=== PATIENT | female | born 1965 | race Caucasian/White ===

== ENCOUNTER 2017-04-12 18:21 | Emergency (ER) | payer OTHER ==
[2017-04-12 18:34] VITALS: BP 138/86
[2017-04-12] MEDS ORDERED: KETOROLAC TROMETHAMINE 60 MG/2 ML VIAL IM ONE ×2 (18:51→18:59)
--- NOTE | 2017-04-12 19:03 | ERNOTE ---
Upper Extremity HPI - Narrative Date of Service: 04/12/17 - General Extremities Pain Location: shoulder: left Time Seen by Provider: 04/12/17 18:41 Source: patient Exam Limitations: no limitations - Immun/Allergies/Home Medications Immunizations: IMMUNIZATION HX Immunizations Up to Date Yes History of Influenza Vaccine Yes Allergies/Adverse Reactions: Allergies Allergy/AdvReac Type Severity Reaction Status Date / Time No Known Allergies Allergy Verified 06/13/13 09:54 Home Medications: HOME MEDICATIONS Naproxen Sodium [Aleve] 220 mg PO BID PRN 06/13/13 [Last Taken Unknown] HYDROcodone/ACETAMINOPHEN [Hydrocodon-Acetaminophen 5-325] 1 each PO TID PRN # 20 tablet 04/12/17 [Last Taken Unknown] - History of Present Illness Narrative: 51-year-old female presents to the emergency room after she was walking and carrying something and tripped and fell landing on her left shoulder and also bruising her right wrist. Date (Duration): 04/12/17 Occurred: just prior to arrival Location of Incident: home Severity: mild Method of Injury: Reports: fell Reason for Fall: Reports: lost balance Loss of Consciousness: Reports: no loss of consciousness Modifying Factors - (Worsens): Reports: movement Associated Symptoms: Reports: tingling - right wrist Review of Systems - Review of Systems Constitutional: Present: no symptoms reported EYE: Present: no symptoms reported ENT: Present: no symptoms reported Respiratory: Present: no symptoms reported Cardiology: Present: no symptoms reported Gastrointestinal/Abdominal: Present: no symptoms reported Genitourinary: Present: no symptoms reported Musculoskeletal: Present: See HPI Skin: Present: other - bruising to right wrist and right thumb Neurological: Present: tingling - r wrist Endocrine: Present: no symptoms reported Hematologic/Lymphatic: Present: no symptoms reported Psych: Present: no symptoms reported - Patient's Past Medical History Patient History - Medical: Arthritis Patient History - Cardiac/Respiratory: No pertinent hx Patient History - Cancer: No Hx of Cancer Patient History - Surgical Procedures: Orthopedic Patient History - Other: None - Social History Living Situations: spouse Abuse History: No History of abuse Psych History: No pertinent hx Smoking Status: Never smoker Do you dip or chew tobacco: No Alcohol Use: none Drug Use: none - Immunizations Immunizations Up to Date: Yes History of Influenza Vaccine: Yes Physical Exam - Physical Exam General Appearance: Present: wd/wn, alert, no apparent distress Eye Exam: Normal inspection: bilateral Ears, Nose, Throat: Present: normal ENT inspection Neck: Present: normal inspection Respiratory: Present: no respiratory distress, normal breath sounds, no accessory muscle use, lungs clear Cardiovascular/Chest: Present: regular rate, rhythm, no murmur, normal peripheral pulses Peripheral Pulses: N=norm/S=strong/W=weak/B=bound/A=absent: Radial (R): Normal, Radial (L): Normal Gastrointestinal/Abdominal: Present: soft Back Exam: Present: normal inspection, normal range of motion, no vertebral tenderness Extremity Exam: Present: normal except - - pain with ROm to laft shoulder. unable to abduct left arm, decreased range of motion Neurological Exam: Present: alert, oriented, normal mood/affect, no motor/ sensory deficits Skin Exam: Present: normal color, warm/dry Lymphatic Exam: Present: no adenopathy ED Progress - Vital Signs Vital Signs: Vital Signs 04/12/17 18:29 Temperature 37.1 C Pulse Rate 83 Respiratory 14 Rate Blood Pressure 138/86 O2 Sat by Pulse 99 Oximetry - X-Ray X-Ray #1 X-Ray: shoulder Interpretation: Reviewed by me X-ray Comments: no acute injury observed X-Ray #2 X-Ray: wrist Interpretation: Reviewed by me X-ray Comments: no acute fracture observed - Progress/Reassessment Chief Complaint: Shoulder Injury/Pain Progress:: Improved Departure Clinical Impression: Injury, shoulder and upper arm Qualifiers: Encounter type: initial encounter Laterality: left Qualified Code(s): S49.92XA - Unspecified injury of left shoulder and upper arm, initial encounter - Departure Disposition: Home Follow Up Needed Condition: Stable Instructions: Shoulder Sprain, Shoulder Pain, [id number] Additional Instructions: Continue previous home medications directed. He may take [id number] pain medications as needed. Follow up with her primary care provider in the next 2- 3 days if needed. Referrals: Master Jack DO [Primary Care Provider] - Prescriptions: HYDROcodone/ACETAMINOPHEN [Hydrocodon-Acetaminophen 5-325] 1 each PO TID PRN # 20 tablet PRN Reason: Pain
== END 2017-04-12 20:14 | disposition home or self-care (01) ==
LOC: ER 18:21
DX: S49.92XA Unspecified injury of left shoulder and upper arm, initial encounter (principal); M19.90 Unspecified osteoarthritis, unspecified site; W01.0XXA Fall on same level from slipping, tripping and stumbling without subsequent striking against object, initial encounter; Y93.89 Activity, other specified; Y92.009 Unspecified place in unspecified non-institutional (private) residence as the place of occurrence of the external cause

== ENCOUNTER 2017-10-13 06:44 | Day surgery (SDC) | payer OTHER ==
[~2017-10-13 06:44] MED LIST: ceFAZolin SODIUM 1 GM VIAL IV PRN
[2017-10-13] MEDS: RINGER'S SOLUTION,LACTATED 1,000 ML IV PRN ×2 (07:05→07:35)
--- NOTE | 2017-10-13 10:13 | POSTOP NO ---
Date of Surgery: 10/13/17 Patient Tolerated the Procedure: Well Post Operative Diagnosis/Procedures: Dark Room Attendant: Anton Boone PA-C Post-operative Diagnosis: Massive rotator cuff tear left shoulder, biceps tear Finding: Above Procedure: Mini open rotator cuff repair massive rotator cuff tear left shoulder , biceps tenotomy Estimated Blood Loss: Minimal Specimens: None
--- NOTE | 2017-10-13 10:18 | OR ---
Operative Report - Dictated Report Narrative: Date: 10/13/2017 Physician: Kurt Azevedo M.D. Book Jacket Cover Machine Operator: Anton Boone PA-C Preoperative diagnosis: Left Shoulder massive full-thickness rotator cuff tear, biceps tendon tear Postoperative diagnosis: Left Shoulder massive full-thickness rotator cuff tear of the supra and infraspinatus tear, biceps tendon tear Procedure: Left shoulder arthroscopy with mini open massive rotator cuff repair , biceps tenotomy Anesthesia: General plus regional Complications: None Estimated blood loss: Minimal Specimens: None Retained implants: [employer] 4.5 mm peek helicoil anchor 3, footprint anchor 2 Drains: None Indications: Mrs. Hahn Is a 51 year-old female who has been followed in my clinic with complaints of shoulder pain consistent full-thickness rotator cuff tear. Physical exam and diagnostic imaging were consistent with his complaints and concern for massive retracted full thickness rotator cuff tear. Conservative measures have failed including, but not limited to, passage of time, activity modification, medications, physical therapy/home exercise program, or injections. The risks, benefits, and alternatives were discussed in clinic. The risks being , bleeding, infection, blood clots, nerve, tendon, ligament , blood vessel injury, persistent pain, arthrosis, stiffness, need for prolonged therapy, need for additional procedures, and persistent symptoms. Consent was obtained in the clinic. Procedure: After marking the correct extremity in the preoperative holding area, a timeout was performed in the operating room. IV antibiotics consisting of Ancef were administered prior to the procedure. A general followed by regional anesthetic was induced by the nurse creative engagement director per my request. This was in the supine position, then the patient was transitioned to a beachchair position with all bony prominences well-padded, head in neutral, the nonoperative arm well supported, and the legs padded with SCDs in place. The operative shoulder was then prepped and draped in a standard sterile fashion. Preoperatively the shoulder had full passive range of motion, and no gross instability. After marking out the bony landmarks, saline was infused into the joint through a posterior lateral portal site. A bayron incision was made, and the blunt trocar and cannula was introduced into the shoulder joint. An accessory portal was placed in the rotator cuff interval using a spinal needle for guidance. Upon initial evaluation, the biceps tendon showed approximately 50% thickness tear at the edge of the articular cartilage. The middle glenohumeral ligament was intact. Subscapularis tendon was unremarkable. The glenoid showed mild degenerative change. The humeral head articular surface showed minimal degenerative change. The anterior labrum was frayed but intact. The superior labrum was intact. The pouch was unremarkable. The posterior labrum was intact. The supraspinatus tendon was torn and retracted to the level of the glenoid. The infraspinatus tendon was torn and retracted to the level of glenoid. Utilizing arthroscopic scissors, the biceps was tenotomized as it inserted on the labrum. The remaining stump and distal fibers were debrided using a shaver. Attention was then turned to the subacromial space. Subacromial bursectomy was performed utilizing the prior portals. The coracoacromial ligament frayed but intact. The bursal side of the rotator cuff demonstrated full-thickness tear with retraction is identified intra-articularly. The acromial arch fairly unremarkable. Based on the arthroscopic findings, as well as exam and radiographic findings, it was elected to proceed with a mini open rotator cuff repair. A longitudinal incision centered over the previously identified rotator cuff tear was made just off the edge of the acromion. This was approximately 6 centimeters in length. The deltoid fascia was split sharply in line with its fibers, and blunt dissection was carried through the deltoid muscle. Any remaining subacromial bursal tissue was debrided in order to expose the underlying rotator cuff tear. The rotator cuff tear appeared to be L-shaped orientation. It was retracted posteriorly and medially with minimal remaining fibers at the most posterior aspect of the infraspinatus. The tuberosity was debrided of its soft tissues producing a bleeding bed for the tendon to be secured to. 3 4.5 mm PEEK helicoil anchor was placed just off the articular surface of the humeral head. A series of horizontal mattress sutures were placed at the prepared edge of the rotator cuff. This allowed for a tension-free return of the tendon to the greater tuberosity. The sutures were then passed longitudinally into 2 4.5 mm PEEK footprint anchor. This was performed and a suture bridge technique. This gave good overall compression to the rotator cuff at the insertion site. The shoulders place a range of motion and had no lift off of the repair site as well as no crepitance or signs of impingement. Full passive range of motion was able to be obtained. Once it was felt that the rotator cuff was adequately repaired, the wounds were thoroughly irrigated. 0 Vicryl was utilized in order to repair the deltoid fascia. 3-0 Monocryl was placed in the subcutaneous tissue. The rotator cuff incision as well as the portal sites were closed with interrupted nylon. Dressings consisting of Xeroform, 4 x 4, ABD, soft roll, and tape were applied. All sponge, needle, blade, and instrument counts were correct prior to closing the wounds. The patient was awoken and transferred to the postanesthesia care unit in stable condition.
[2017-10-13 11:53] VITALS: BP 127/82
--- NOTE | 2017-10-13 17:29 | OR ---
Anesthesia Procedure Note - Anesthesia Procedure Note Narrative: Vital Signs - Last Taken Temp 35.9 C L 10/13/17 13:30 Pulse 76 10/13/17 13:30 Resp 18 10/13/17 13:30 BP 127/82 10/13/17 13:30 Pulse Ox 100 10/13/17 13:30 O2 Oxygen Delivery Method Room Air 10/13/17 17:24 ANESTHESIA PROCEDURE NOTE Date of procedure: 10/13/2017. Time of procedure: . Performed by: Yann Gorman CRNA Patient Services Coordinator: Soco Casanova RN . Preprocedure diagnosis: Left rotator cuff tear. Need for postoperative analgesia. Post procedure diagnosis: Same. Procedure: Ultrasound-guided the left interscalene nerve block. Indications: Postoperative analgesia. Findings: Patient brought to operating room #4 and placed in a semi-Noriega's position. Patient was sedated. Patient's left neck was prepped with ChloraPrep. Ultrasound was used to identify brachial plexus in the interscalene groove. A 22-gauge 2 inch Stimuplex regional block needle was advanced under ultrasound guidance and with use of nerve stimulator. Muscle twitch was elicited at 0.9 mA. Muscle twitch was maintained as energy level was decreased. Muscle twitch disappeared at 0.45 mA. A total of 40 mL of 0.5% Marcaine with epinephrine 1 200,000 was injected around the brachial plexus. Adequate spread of local anesthetic was noted. Regional block needle was removed intact. EBL: Minimal. Fluids: N/A. Specimen: N/A. Post procedure condition: The patient tolerated the procedure well. No complications were noted. Thank you for this consultation Yann Gorman CRNA
== END 2017-10-13 06:45 | disposition home or self-care (01) ==
LOC: AMB 06:44
PROVIDERS: ATTEND Orthopaedic Surgery
PROC: 0LQ20ZZ Repair Left Shoulder Tendon, Open Approach (ICD-10-PCS; 2017-10-13)
PROC: 0RHK04Z Insertion of Internal Fixation Device into Left Shoulder Joint, Open Approach (ICD-10-PCS; 2017-10-13)
PROC: 3E0T3BZ Introduction of Anesthetic Agent into Peripheral Nerves and Plexi, Percutaneous Approach (ICD-10-PCS; 2017-10-13)
PROC: 0RBK4ZZ Excision of Left Shoulder Joint, Percutaneous Endoscopic Approach (ICD-10-PCS; principal; 2017-10-13 08:00)
DX: M75.112 Incomplete rotator cuff tear or rupture of left shoulder, not specified as traumatic (principal); S46.212A Strain of muscle, fascia and tendon of other parts of biceps, left arm, initial encounter; Z68.37 Body mass index [BMI] 37.0-37.9, adult